=== PATIENT | female | born 1950 | race Caucasian/White ===

== ENCOUNTER → 2018-07-31 | Outpatient (CLI) | payer MEDICARE, OTHER ==
[~2018-07-31] MED LIST: ALOE VERA25 MG PO; AMITRIPTYLINE H25 M2 PO; ELMIRON 100 MG100 M1 PO; FISH OIL 1,0001 EAC8 PO; FLAX OIL1000 MG PO; IMMUNE GLOBULIN PO; LEVOTHYROXIN0.125 M1 PO; VITAMIN B-125000 MCG PO; VITAMIN D32000 UNIT PO; VITAMIN E400 UNIT PO; ZETIA10 MG PO; [UNRECOGNIZED DRUG - OTHER] PO; [UNRECOGNIZED DRUG - REMARK]
== END ==
LOC: M.RAD 07-29 09:00
DX: Z12.31 Encounter for screening mammogram for malignant neoplasm of breast (principal)

== ENCOUNTER → 2019-09-13 | Outpatient (CLI) | payer MEDICARE, OTHER | LOC: M.RAD 10:47 | DX: Z12.31 Encounter for screening mammogram for malignant neoplasm of breast (principal) ==

== ENCOUNTER → 2020-10-03 | Outpatient (CLI) | payer MEDICARE, OTHER | LOC: M.RAD 09-29 11:00 | PROVIDERS: ATTEND Internal Medicine | DX: Z12.31 Encounter for screening mammogram for malignant neoplasm of breast (principal) ==